=== PATIENT | male | born 1955 | race Caucasian/White ===

== ENCOUNTER 2022-10-03 10:27 | Outpatient (CLI) | payer OTHER | END 2022-10-03 10:28 | disposition home or self-care (01) | LOC: CSHCP 10:27 | DX: J44.9 Chronic obstructive pulmonary disease, unspecified (principal); Z87.891 Personal history of nicotine dependence | CPT/HCPCS: 94060; 94726; 94729; 94760 ==

== ENCOUNTER 2023-05-24 09:42 | Outpatient (CLI) | payer OTHER | END 2023-05-24 09:43 | disposition home or self-care (01) | LOC: CSHULT 09:42 | DX: R42 Dizziness and giddiness (principal); I65.21 Occlusion and stenosis of right carotid artery | CPT/HCPCS: 93880 ==